=== PATIENT | male | born 1990 | race African-American/Black ===

== ENCOUNTER 2024-05-24 08:25 | Outpatient (RCR) | payer OTHER, SELFPAY | END 2024-06-24 12:55 | disposition home or self-care (01) | LOC: PT 08:25 | PROVIDERS: PCP Family Medicine | DX: M75.42 Impingement syndrome of left shoulder (principal) | CPT/HCPCS: 97010; 97012; 97110; 97140; 97162 ==

== ENCOUNTER 2024-08-08 08:27 | Outpatient (RCR) | payer OTHER, SELFPAY | END 2024-08-23 11:57 | disposition home or self-care (01) | LOC: PT 08:27 | PROVIDERS: PCP Family Medicine | DX: M75.42 Impingement syndrome of left shoulder (principal) | CPT/HCPCS: 97010; 97014; 97110; 97140; 97162 ==

== ENCOUNTER 2024-08-24 06:00 | Outpatient (RCR) | payer SELFPAY | END 2024-09-20 15:23 | disposition home or self-care (01) | LOC: PT 06:00 | PROVIDERS: PCP Family Medicine | DX: M75.42 Impingement syndrome of left shoulder (principal); M25.512 Pain in left shoulder | CPT/HCPCS: 97014; 97110; 97140 ==